=== PATIENT | female | born 1980 | race Two or more races ===

== ENCOUNTER 2024-06-11 14:53 | Emergency (ER) | payer BC, OTHER ==
[~2024-06-11] VITALS: Ht 160 cm; Wt 68.8 kg
--- NOTE | 2024-06-11 16:46 | DVH ---
EXAM: XR Cervical Spine, 2 or 3 Views CLINICAL INDICATION: Radiculopathy TECHNIQUE: Frontal and lateral views of the cervical spine. COMPARISON: None FINDINGS: VERTEBRAE: Unremarkable. No definite fracture. Normal alignment. DISC SPACES: No acute findings. No significant narrowing. SOFT TISSUES: Unremarkable. OTHER FINDINGS: . . IMPRESSION: No acute fracture.
[2024-06-11] MEDS ORDERED: GABA-1250 PO (17:46)
--- NOTE | 2024-06-11 17:47 | ED.PDOC ---
Musculoskeletal HPI Comments This patient is a 44-year-old female who arrives the ED today for evaluation of right arm pain concerns for the past day and a half. Patient states the pain has been sharp and burning on the lateral aspect of her right arm extending into the hand. Patient's medical history is significant for blood clots in lower extremities. Patient denies any fever nausea or vomiting. Patient denies any traumatic events. Patient denies any history of cervical concerns. Patient was hypertensive and tachycardic at arrival. Chief Complaint: Upper Extremity Time Seen by MD: 15:08 Reviewed Notes: Nurses Notes Information Source: Patient, Friend Mode of Arrival: Ambulatory Location: Right Extremity Location: Arm Timing: Days Prehospital treatment: None Severity: Moderate Able to Move Extremity: Yes Bear Weight: Fully Pain: Mild, Moderate Mechanism: Spontaneous Circumstances: Spontaneous Onset of Symptoms: Spontaneous Symptoms: Pain DVT Risk Factors: DVT Past Medical History PAST MEDICAL HISTORY: Denies Past Medical History (Other): History of DVT Surgical History: Denies all surgeries HAND STONER History: No Pertinent HAND STONER History Family History Family History: Reviewed,noncontributory to illness, No family hx of Cancer, No family hx of DM, No family hx of Heart debra, No family hx of HTN, No family hx ofKidney debra, No family hx of Liver debra, No family hx of Lung debra, No family hx of Stroke Social History Smoker: Non-Smoker Alcohol: Denies ETOH Use Drugs: Denies Drug Use Lives In: Home Constitutional: denies: chills, diaphoresis, fatigue, fever, malaise, sweats, weakness, others EENTM: denies: blurred vision, double vision, ear bleeding, ear discharge, ear drainage, ear pain, ear ringing, eye pain, eye redness, hearing loss, mouth pain, mouth swelling, nasal discharge, nose bleeding, nose congestion, nose pain, photophobia, tearing, throat pain, throat swelling, voice changes, others Respiratory: denies: cough, hemoptysis, orthopnea, SOB at rest, shortness of breath, SOB with excertion, stridor, wheezing, others Cardiovascular: denies: chest pain, dizzy spells, diaphoresis, Dyspnea on exertion, edema, irregular heart beat, left arm pain, lightheadedness, palpitations, PND, syncope, others Gastrointestinal: denies: abdomen distended, abdominal pain, blood streaked bowels, constipated, diarrhea, dysphagia, difficulty swallowing, hematemesis, melena, nausea, poor appetite, poor fluid intake, rectal bleeding, rectal pain, vomiting, others Genitourinary: denies: abnormal vagina bleeding, burning, dyspareunia, dysuria, flank pain, frequency, hematuria, incontinence, pain, , vagina discharge, urgency, others Neurological: denies: dizziness, fainting, headache, left sided numbness, left sided weakness, numbness, paresthesia, pre-existing deficit, right sided numbness, right sided weakness, seizure, speech problems, tingling, tremors, weakness, others Musculoskeletal: reports: others (Right arm pain); denies: back pain, gout, joint pain, joint swelling, muscle pain, muscle stiffness, neck pain Integumetry: denies: bruises, change in color, change in hair/nails, dryness, laceration, lesions, lumps, rash, wounds, others Allergic/Immunocompromised: denies: Difficulty Healing, Frequent Infections, Hives, Itching, others Hematologic/Lymphatic: denies: anemia, blood clots, easy bleeding, easy bruising, swollen glands, others Endocrine: denies: excessive hunger, excessive sweating, excessive thirst, excessive urination, flushing, intolerance to cold, intolerance to heat, unexplained weight gain, unexplained weight loss, others Psychiatric: denies: anxiety, bipolar disorder, depression, hopeless, panic disorder, schizophrenia, sleepless, suicidal, others Physical Exam General Appearance: Mild Distress (Currently only mild distress at time of evaluation.), Normal HEENT: Normal ENT Inspection, Pharynx Normal, TMs Normal Neck: Full Range of Motion, Non-Tender, Normal, Normal Inspection Respiratory: Chest Non-Tender, Lungs Clear, No Accessory Muscle Use, No Respiratory Distress, Normal Breath Sounds Cardiovascular: No Edema, No JVD, No Murmur, No Gallop, Normal Peripheral Pulses, Regular Rate/Rhythm Breast Exam: Deferred Gastrointestinal: No Organomegaly, Non Tender, No Pulsatile Mass, Normal Bowel Sounds, Soft Genitalia: Deferred Pelvic: Deferred Rectal: Deferred Extremities: Other (Right arm evaluation was unremarkable for shoulder to fingers. No signs of trauma. No edema or ecchymosis. No signs of swelling. Limb is warm. Distal neurovascularly intact. Patient complains of lateral triceps pain with events of dorsal hand pain.) Neurologic: Alert, No Motor Deficits, Normal Affect, Normal Mood, No Sensory Deficits Cerebellar Function: Normal Reflexes: Normal Skin: Dry, Normal Color, Warm Lymphatic: No Adenopathy Was a procedure done? Was a procedure done?: No Differential Diagnosis EXT Differential Diagnosis: Other (Cervical radiculopathy, arm pain) X-Ray, Labs, Meds, VS Vital Signs Date Time Temp Pulse Resp B/P (MAP) Pulse Ox O2 Delivery O2 Flow Rate FiO2 06/11/24 17:07 98.1 88 16 141/82 (101) 97 98.1 06/11/24 15:09 98.0 120 18 145/95 (112) 98 X-Ray, Labs, Meds, VS Comment All studies performed the ED were evaluated by me personally. Cervical series was unremarkable for any definitive degenerative disc disease. Patient does not have a DVT as there are no signs of blood clot formation. 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 Advise utilizing medication as needed for symptomatic relief. If symptoms continue, patient will need to follow up with primary care provider. Time of 1ST Reevaluation: 17:45 Reevaluation 1ST: Improved Consultation: PCP Patient Education/Counseling: Diagnosis, Treatment Family Education/Counseling: Diagnosis, Treatment Departure 1 Departure Time of Disposition: 17:45 Impression: Primary Impression: Radiculopathy affecting upper extremity Disposition: 01 HOME / SELF CARE / HOMELESS Condition: Stable Additional Instructions: Advised patient utilize medication as needed for symptomatic relief as well as ice therapy of the cervical and arm region. If symptoms continue, patient will need to follow up with primary care provider. e-Prescriptions Gabapentin (Gabapentin) 300 Mg Cap 1 CAP PO Q6HP PRN, #20 CAP 0 Refills Prov: MARTÍNEZ JETER PAC 06/11/24 Discharged With: Self, Friend Critical Care Note Critical Care Time?: No Stability Stability form required: No Heart Score Heart Score: Heart Score Response (Comments) Value History N/A 0 EKG N/A 0 Age N/A 0 Risk Factors N/A 0 Troponin N/A 0 Total 0 MARTÍNEZ JETER PAC Jun 11, 2024 17:47
[2024-06-11 18:29] VITALS: BP 140/90; PULSE 87; RESP 18; TEMP 97.7; O2SAT 100
== END 2024-06-11 18:29 | disposition home or self-care (01) ==
LOC: ER 14:53
DX: M54.12 Radiculopathy, cervical region (principal); M79.601 Pain in right arm; I10 Essential (primary) hypertension; Z86.718 Personal history of other venous thrombosis and embolism
CPT/HCPCS: 72040